=== PATIENT | male | born 1950 | race African-American/Black ===

== ENCOUNTER 2017-04-03 10:27 | Observation (INO) | payer OTHER ==
[~2017-04-03] VITALS: Ht 175.3 cm; Wt 71.5 kg
[2017-04-03] MEDS ORDERED: METOPROLOL TARTRATE 1 MG/ML VIAL IV STA (10:37)
[2017-04-03] MEDS ORDERED: NITROGLYCERIN OINT 2% 1GM PACKET EXT ONE (10:45)
--- NOTE | 2017-04-03 10:52 | EMERGENCY ROOM VISIT NOTE ---
History Report prepared by Bisi: Francisco Nicholson Under the Supervision of: Dr. Bertin Mcdowell D.O. First contact with patient: 10:33 Chief Complaint: CARDIAC ASSESSMENT Stated Complaint: CARDIAC ASSESSMENT History of Present Illness The patient is a 66 year old male who presents to the Emergency Room from [facility], with complaints of constant left sided chest and epigastric abdominal pain that began one night prior to arrival. The patient describes his pain as a "pressure." His pain onset while he was walking. He denies any nausea or vomiting and has not noticed any swelling in his lower extremities. The patient has has a history of thyroid complications, BPH, coronary artery disease, pulmonary hypertension, and hyperlipidemia. He has no surgical history. He had a heart catheterization in 2010. The patient received nitroglycerin and Aspirin prior to arrival. 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 A total of 10 systems reviewed and were otherwise negative. Past Medical & Surgical Medical Problems: (1) CAD (coronary artery disease) (2) Hyperlipidemia (3) Hypertension (4) Hypertensive urgency CAD (coronary artery disease) Hyperlipidemia Hypertension Family History No pertinent family history secondary to age. Social History Marital Status: single (Inmate) [facility] Status: [facility] ([facility] Occupation Status: other (Inmate) Current/Historical Medications Scheduled Amlodipine (Norvasc), 10 MG PO DAILY Aspirin (Aspirin Chewable), 81 MG PO DAILY Atorvastatin (Lipitor), 20 MG PO QPM Atorvastatin (Lipitor), 40 MG PO QPM Hydrochlorothiazide (Hctz), 25 MG PO DAILY Isosorbide Dinitrate (Isordil), 30 MG PO QID Lisinopril (Zestril), 40 MG PO DAILY Metoprolol Tartrate (Lopressor) (Lopressor), 25 MG PO BID Nitroglycerin (Nitrostat), 0.4 MG UT PRN Allergies Coded Allergies: No Known Allergies (Unverified , 04/03/17) Physical Exam Vital Signs Date Time Temp Pulse Resp B/P Pulse Ox O2 Delivery O2 Flow Rate FiO2 04/03/17 12:25 98 Room Air 04/03/17 12:10 87 04/03/17 12:10 84 16 270/151 98 04/03/17 11:14 74 16 222/135 99 Room Air 04/03/17 11:09 74 18 243/117 97 Room Air 04/03/17 11:05 85 18 233/122 98 04/03/17 10:58 99 265/151 04/03/17 10:42 121 04/03/17 10:40 99 Room Air 04/03/17 10:40 36.9 110 16 264/151 99 Room Air 04/03/17 10:40 99 Room Air Physical Exam GENERAL: Patient is awake, alert, and in no acute distress. Patient is resting comfortably and showing no signs of anxiety EYES: The conjunctivae are clear. The pupils are round and reactive. EARS, NOSE, MOUTH AND THROAT: The nose is without any evidence of any deformity. Mucous membranes are moist tongue is midline NECK: The neck is nontender and supple. RESPIRATORY: Normal respiratory effort is noted there is no evidence of wheezing rhonchi or rales CARDIOVASCULAR: Regular rate and rhythm noted there no murmurs rubs or gallops normal S1 normal S2 GASTROINTESTINAL: The abdomen is mildly distended, but soft. Bowel sounds are present in all quadrants. Abdomen is nontender MUSCULOSKELETAL/EXTREMITIES: There is no evidence of gross deformity full range of motion is noted in the hips and shoulders SKIN: There is no obvious evidence of any rash. There are no petechiae, pallor or cyanosis noted. NEUROLOGIC: Patient is awake alert and oriented x3 Medical Decision & Procedures ER Provider Diagnostic Interpretation: Radiology results as stated below per my review and radiologist interpretation: CHEST ONE VIEW PORTABLE CLINICAL HISTORY: Chest pain. COMPARISON STUDY: No previous studies for comparison. FINDINGS: This exam is mild compromised due to difficulty with positioning. Lung volumes are normal. There is no evidence of pulmonary edema. Cardiac size is normal. Mediastinal contours are normal. There is no pneumothorax or pleural effusion. There is minimal left basilar opacity. IMPRESSION: 1. Minimal left basilar opacity. Atelectasis or artifact is favored although a mild infectious process could appear similar. 2. No pneumothorax. 3. Study mildly compromised due to difficulty with positioning. Electronically signed by: Abhay Hwang M.D. 04/03/2017 10:56 AM Dictated Date/Time: 04/03/2017 10:54 AM Laboratory Results 04/03/17 10:45 Red Blood Count 4.96, Mean Corpuscular Volume 93.8, Mean Corpuscular Hemoglobin 32.5, Mean Corpuscular Hemoglobin Concent 34.6, Mean Platelet Volume 9.1, Neutrophils (%) (Auto) 51.6, Lymphocytes (%) (Auto) 38.3, Monocytes (%) (Auto) 7.3, Eosinophils (%) (Auto) 2.3, Basophils (%) (Auto) 0.4, Neutrophils # (Auto) 4.10, Lymphocytes # (Auto) 3.04, Monocytes # (Auto) 0.58, Eosinophils # (Auto) 0.18, Basophils # (Auto) 0.03 04/03/17 10:45 Test 04/03/17 10:45 04/03/17 10:53 04/03/17 11:20 White Blood Count 7.94 K/uL (4.8-10.8) Red Blood Count 4.96 M/uL (4.7-6.1) Hemoglobin 16.1 g/dL (14.0-18.0) Hematocrit 46.5 % (42-52) Mean Corpuscular Volume 93.8 fL (80-100) Mean Corpuscular Hemoglobin 32.5 pg (25-34) Mean Corpuscular Hemoglobin Concent 34.6 g/dl (32-36) Platelet Count 268 K/uL (130-400) Mean Platelet Volume 9.1 fL (7.4-10.4) Neutrophils (%) (Auto) 51.6 % Lymphocytes (%) (Auto) 38.3 % Monocytes (%) (Auto) 7.3 % Eosinophils (%) (Auto) 2.3 % Basophils (%) (Auto) 0.4 % Neutrophils # (Auto) 4.10 K/uL (1.4-6.5) Lymphocytes # (Auto) 3.04 K/uL (1.2-3.4) Monocytes # (Auto) 0.58 K/uL (0.11-0.59) Eosinophils # (Auto) 0.18 K/uL (0-0.5) Basophils # (Auto) 0.03 K/uL (0-0.2) RDW Standard Deviation 47.1 fL (36.4-46.3) RDW Coefficient of Variation 13.8 % (11.5-14.5) Immature Granulocyte % (Auto) 0.1 % Immature Granulocyte # (Auto) 0.01 K/uL (0.00-0.02) Prothrombin Time 11.7 SECONDS (9.0-12.0) Prothromb Time International Ratio 1.1 (0.9-1.1) Activated Partial Thromboplast Time 28.2 SECONDS (21.0-31.0) Partial Thromboplastin Ratio 1.1 Anion Gap 7.0 mmol/L (3-11) Est Creatinine Clear Calc Drug Dose 71.7 ml/min Estimated GFR () 89.9 Estimated GFR (Non- 77.5 BUN/Creatinine Ratio 16.8 (10-20) Calcium Level 9.3 mg/dl (8.5-10.1) Total Bilirubin 0.5 mg/dl (0.2-1) Direct Bilirubin 0.1 mg/dl (0-0.2) Aspartate Amino Transf (AST/SGOT) 24 U/L (15-37) Alanine Aminotransferase (ALT/SGPT) 27 U/L (12-78) Alkaline Phosphatase 95 U/L (45-117) Total Creatine Kinase 147 U/L (39-308) Creatine Kinase MB 3.8 ng/ml (0.5-3.6) Creatine Kinase MB Ratio 2.6 (0-3.0) Pro-B-Type Natriuretic Peptide 551 pg/ml (0-900) Total Protein 8.6 gm/dl (6.4-8.2) Albumin 4.0 gm/dl (3.4-5.0) Lipase 92 U/L (73-393) Bedside Troponin I 0.000 ng/ml (0-0.045) Laboratory results per my review. Medications Administered Medications (Trade) Dose Ordered Sig/Keith Route Start Time Stop Time Status Last Admin Dose Admin Nitroglycerin (Nitroglycerin 2% Oint) 1 inch NOW ONCE EXT 04/03/17 10:45 04/03/17 10:46 DC 04/03/17 10:58 1 INCH Metoprolol Tartrate (Lopressor Iv) 15 mg NOW STAT IV 04/03/17 10:37 04/03/17 10:38 DC 04/03/17 10:58 15 MG ECG Indication: chest pain Rate (beats per minute): 109 Rhythm: sinus tachycardia Findings: ST depression (Lateral, Inferior), T-wave inversion Comparison ECG Date: 04/06/2016 Change: inferior changes are new ED Course 1036: The patient was evaluated in room A3. A complete history and physical examination were performed. 1037: Ordered Lopressor 15 mg IV, Nitroglycerin 1 inch. 1215: I discussed the case with Dr. Corbett at this time, She will evaluate the patient for further treatment. Medical Decision The patient's history was concerning for chest pain. Differential diagnosis: Etiologies such as cardiac ischemia, aortic dissection, pulmonary embolism, pneumonia, pneumothorax, musculoskeletal, infections, pericarditis, myocarditis , esophageal rupture, gastrointestinal, as well as others were entertained. The patient is a 66-year-old male who has a history of coronary artery disease who presented to the emergency department for an evaluation of chest pain. The patient developed chest pain yesterday while he was walking. The patient denies any shortness of breath. He was found have very elevated blood pressure and EKG abnormalities which could be consistent with acute ischemia. The patient was given aspirin prior to arrival. He was also treated with nitroglycerin. He was further treated with nitroglycerin and Lopressor in the emergency department. His symptoms slowly improved. I discussed the patient's laboratory and radiographic studies with him. I also discussed the limitations of the emergency Parman workup for chest pain with him. Given the patient's EKG findings and his past medical history I do feel he is high risk. For this reason I discussed his case with the on-call [facility] hospitalist group. They' ve agreed to evaluate the patient in the emergency department for further management and disposition. Consults Time Called: 1210 Consulting Physician: Dr. Corbett - [facility] Returned Call: 1215 I discussed the case with Dr. Corbett at this time, She will evaluate the patient for further treatment. Impression Primary Impression: Chest pain Additional Impressions: Abnormal EKG Hypertension Scribe Attestation The scribe's documentation has been prepared under my direction and personally reviewed by me in its entirety. I confirm that the note above accurately reflects all work, treatment, procedures, and medical decision making performed by me. Departure Information Dispostion Being Evaluated By Hospitalist Patient Instructions My [facility] Problem Qualifiers Primary Impression: Chest pain Chest pain type: unspecified Qualified Codes: R07.9 - Chest pain, unspecified Additional Impressions:
[2017-04-03 10:56] LABS: BASO % 0.4 %; BASO ABS # 0.03 K/uL (0-0.2); COMPLETE YES; EOS % 2.3 %; HEMATOCRIT 46.5 % (42-52); IG% 0.1 %; LYMPH % 38.3 %; LYMPH ABS # 3.04 K/uL (1.2-3.4); MEAN CELL VOLUME 93.8 fL (80-100); MEAN CORPUSCULAR HEMOGLOBIN 32.5 pg (25-34); MEAN CORPUSCULAR HGB CONC 34.6 g/dl (32-36); MEAN PLATELET VOLUME 9.1 fL (7.4-10.4); MONO % 7.3 %; NEUT % 51.6 %; PLATELET COUNT 268 K/uL (130-400); RED BLOOD COUNT 4.96 M/uL (4.7-6.1); WHITE BLOOD COUNT 7.94 K/uL (4.8-10.8)
--- NOTE | 2017-04-03 10:58 | DIAGNOSTIC IMAGING REPORT ---
CHEST ONE VIEW PORTABLE CLINICAL HISTORY: Chest pain. COMPARISON STUDY: No previous studies for comparison. FINDINGS: This exam is mild compromised due to difficulty with positioning. Lung volumes are normal. There is no evidence of pulmonary edema. Cardiac size is normal. Mediastinal contours are normal. There is no pneumothorax or pleural effusion. There is minimal left basilar opacity. IMPRESSION: 1. Minimal left basilar opacity. Atelectasis or artifact is favored although a mild infectious process could appear similar. 2. No pneumothorax. 3. Study mildly compromised due to difficulty with positioning. Electronically signed by: Abhay Hwang M.D. 04/03/2017 10:56 AM Dictated Date/Time: 04/03/2017 10:54 AM
[2017-04-03] MEDS ORDERED: ATOR-54 PO (11:01)
[2017-04-03] MEDS ORDERED: HYDR25TA4 PO (11:01)
[2017-04-03] MEDS ORDERED: LPT/40 PO (11:01)
[2017-04-03] MEDS ORDERED: NTRGSL/4 UT (11:01)
[2017-04-03] MEDS ORDERED: AMLO-114 PO (11:01)
[2017-04-03] MEDS ORDERED: LISI40TA PO (11:01)
[2017-04-03] MEDS ORDERED: ASPCH81X PO (11:01)
[2017-04-03] MEDS ORDERED: METO25TA56 PO (11:01)
[2017-04-03] MEDS ORDERED: ISR/30 PO (11:01)
[2017-04-03 11:12] LABS: INR 1.1 (0.9-1.1); PARTIAL THROMBOPLASTIN RATIO 1.1; PROTHROMBIN TIME (PATIENT) 11.7 SECONDS (9.0-12.0)
[2017-04-03 11:15] LABS: BUN/CREATININE RATIO 16.8 (10-20); CALCIUM 9.3 mg/dl (8.5-10.1)
[2017-04-03 11:23] LABS: CKMB/CK RATIO 2.6 (0-3.0)
[2017-04-03] MEDS ORDERED: MAGNESIUM HYDROXIDE SUSP 30 ML UDC PO PRN (12:15)
[2017-04-03] MEDS ORDERED: ONDANSETRON INJ 2 MG/ML 2 ML VIAL IV PRN (12:15)
[2017-04-03] MEDS ORDERED: NITROGLYCERIN 0.4 MG SL PER TAB CHARGE UT PRN (12:15)
[2017-04-03] MEDS ORDERED: ACETAMINOPHEN 325 MG TAB PO PRN (12:15)
[2017-04-03 12:25] VITALS: BP 203/116; PULSE 83; TEMP 36.6; O2SAT 98; Ht 175.3 cm; Wt 71.5 kg
[2017-04-03 12:55] LABS: URINE APPEARANCE CLEAR (CLEAR); URINE BILIRUBIN NEG (NEG); URINE COLOR YELLOW; URINE EPITHELIAL CELL AUTO 0-5 /lpf (0-5); URINE NITRITE NEG (NEG); URINE PH 7.5 (4.5-7.5); URINE SPECIFIC GRAVITY 1.007 (1.000-1.030); UROBILINOGEN NEG (NEG)
[2017-04-03 12:57] LABS: MANUAL MICROSCOPIC REQUIRED? NO; REVIEW REQ? NO
[2017-04-03 12:58] LABS: SULFASALICYLIC ACID NEG (NEG)
[2017-04-03] MEDS ORDERED: LABETALOL HCL IV 5 MG/ML 20ML IV ONE (13:00)
--- NOTE | 2017-04-03 13:01 | History and Physical ---
History & Physical Date & Time of Service: April 03, 2017 at 12:37 Chief Complaint: Cardiac Assessment Primary Care Physician: Darius PEREIRA History of Present Illness Source: patient The patient is a 66 year old male with PMH of HTN, Dyslipidemia, Stroke with no deficits, hx of cardiac cath at [facility] in 2007 - no stents were placed (patient doesnt know about the results) who presents to the Emergency Room from [facility], with complaints of constant left sided chest and epigastric abdominal pain that began one night prior to arrival. Patient has been in long term x 43 years, recently transferred to [facility]. No prior records available in EMR. Patient comes in with c/o left sided chest pain/Epigastric pain which began yesterday night and per him it is constant, dull aching, non radiating, no aggravating or relieving factors. Does have mild SOB associated with it. Not associated with nausea, diaphoresis, sweating, palpitations, fever, chills, cough, leg swelling. No headaches, blurry vision, localized weakness, numbness/tingling, vomiting. Did take him medications in AM In ED, BP is 264/151 on presentation, Pulse 110, now down to 70s -received Lopressor IV -15 mg x 1 dose. Received Aspirin 160 mg, NTG x 2 doses (one by EMS , one in ED). Continues to have chest pain. Has painful mictuirition and difficulty passing urine. Has always had urgency, hesitancy, frequency, but never been this painful before. C/o constipation- No BM x 3 days. Will admit him for HTN urgency/Chest pain rule out ACS. Past Medical/Surgical History Medical Problems: (1) CAD (coronary artery disease) Status: Chronic (2) Hyperlipidemia Status: Chronic (3) Hypertension Status: Chronic Social History Smoking Status: Current Every Day Smoker (8-10 cig /day) Alcohol Use: occasionally Drug Use: none Marital Status: single (Inmate) Occupational Status: other (Inmate) Allergies Coded Allergies: No Known Allergies (Unverified , 04/03/17) Home Medications Scheduled Amlodipine (Norvasc), 10 MG PO DAILY Aspirin (Aspirin Chewable), 81 MG PO DAILY Atorvastatin (Lipitor), 20 MG PO QPM Atorvastatin (Lipitor), 40 MG PO QPM Hydrochlorothiazide (Hctz), 25 MG PO DAILY Isosorbide Dinitrate (Isordil), 30 MG PO QID Lisinopril (Zestril), 40 MG PO DAILY Metoprolol Tartrate (Lopressor) (Lopressor), 25 MG PO BID Nitroglycerin (Nitrostat), 0.4 MG UT PRN Review of Systems Constitutional: No chills, No fever Eyes: No eye pain, No worsening of vision ENT: No hearing loss, No nasal symptoms Respiratory: + shortness of breath (mild), No cough, No wheezing Cardiovascular: + chest pain Abdomen: + constipation, + pain (epigastric), No GI bleeding, No diarrhea, No nausea, No vomiting Musculoskeletal: No swelling Genitourinary - Male: + dysuria, + urinary frequency, + urinary hesitancy, + urinary urgency Neurologic: No memory loss, No paralysis Psychiatric: No depression symptoms Endocrine: No fatigue Hematologic / Lymphatic: No abnormal bleeding/bruising Integumentary: No rash Physical Exam Vital Signs Date Time Temp Pulse Resp B/P Pulse Ox O2 Delivery O2 Flow Rate FiO2 04/03/17 12:10 87 04/03/17 12:10 84 16 270/151 98 04/03/17 11:14 74 16 222/135 99 Room Air 04/03/17 11:09 74 18 243/117 97 Room Air 04/03/17 11:05 85 18 233/122 98 04/03/17 10:58 99 265/151 04/03/17 10:42 121 04/03/17 10:40 99 Room Air 04/03/17 10:40 36.9 110 16 264/151 99 Room Air 04/03/17 10:40 99 Room Air General Appearance: + moderate distress (secondary to dysuria) Head: normocephalic, atraumatic Eyes: PERRL ENT: hearing grossly normal Neck: supple, no JVD Respiratory/Chest: chest non-tender, lungs clear, normal breath sounds, no respiratory distress, no accessory muscle use Cardiovascular: regular rate, rhythm, no edema, no JVD Abdomen/GI: normal bowel sounds, non tender, soft Back: no CVA tenderness Extremities/Musculoskelatal: no calf tenderness, no pedal edema 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, no motor/sensory deficits, alert, oriented x 3 Skin: no rash Diagnostics Laboratory Results Results Past 24 Hours Test 04/03/17 10:45 04/03/17 10:53 04/03/17 11:20 Range/Units White Blood Count 7.94 4.8-10.8 K/uL Red Blood Count 4.96 4.7-6.1 M/uL Hemoglobin 16.1 14.0-18.0 g/dL Hematocrit 46.5 42-52 % Mean Corpuscular Volume 93.8 80-100 fL Mean Corpuscular Hemoglobin 32.5 25-34 pg Mean Corpuscular Hemoglobin Concent 34.6 32-36 g/dl Platelet Count 268 130-400 K/uL Mean Platelet Volume 9.1 7.4-10.4 fL Neutrophils (%) (Auto) 51.6 % Lymphocytes (%) (Auto) 38.3 % Monocytes (%) (Auto) 7.3 % Eosinophils (%) (Auto) 2.3 % Basophils (%) (Auto) 0.4 % Neutrophils # (Auto) 4.10 1.4-6.5 K/uL Lymphocytes # (Auto) 3.04 1.2-3.4 K/uL Monocytes # (Auto) 0.58 0.11-0.59 K/uL Eosinophils # (Auto) 0.18 0-0.5 K/uL Basophils # (Auto) 0.03 0-0.2 K/uL RDW Standard Deviation 47.1 36.4-46.3 fL RDW Coefficient of Variation 13.8 11.5-14.5 % Immature Granulocyte % (Auto) 0.1 % Immature Granulocyte # (Auto) 0.01 0.00-0.02 K/uL Prothrombin Time 11.7 9.0-12.0 SECONDS Prothromb Time International Ratio 1.1 0.9-1.1 Activated Partial Thromboplast Time 28.2 21.0-31.0 SECONDS Partial Thromboplastin Ratio 1.1 Sodium Level 137 136-145 mmol/L Potassium Level 4.0 3.5-5.1 mmol/L Chloride Level 101 98-107 mmol/L Carbon Dioxide Level 29 21-32 mmol/L Anion Gap 7.0 3-11 mmol/L Blood Urea Nitrogen 17 7-18 mg/dl Creatinine 1.00 0.60-1.40 mg/dl Est Creatinine Clear Calc Drug Dose 71.7 ml/min Estimated GFR () 89.9 Estimated GFR (Non- 77.5 BUN/Creatinine Ratio 16.8 10-20 Random Glucose 114 70-99 mg/dl Calcium Level 9.3 8.5-10.1 mg/dl Total Bilirubin 0.5 0.2-1 mg/dl Direct Bilirubin 0.1 0-0.2 mg/dl Aspartate Amino Transf (AST/SGOT) 24 15-37 U/L Alanine Aminotransferase (ALT/SGPT) 27 12-78 U/L Alkaline Phosphatase 95 45-117 U/L Total Creatine Kinase 147 39-308 U/L Creatine Kinase MB 3.8 0.5-3.6 ng/ml Creatine Kinase MB Ratio 2.6 0-3.0 Pro-B-Type Natriuretic Peptide 551 0-900 pg/ml Total Protein 8.6 6.4-8.2 gm/dl Albumin 4.0 3.4-5.0 gm/dl Lipase 92 73-393 U/L Bedside Troponin I 0.000 0-0.045 ng/ml Diagnostic Radiology EKG reviewed and compared with prior EKG dated 03/2016- New changes = ST depression in Leads III, AVF, Old changes= T wave inversion in I, ST depression in II, V4-V6 CXR- No acute findings noted Impression Assessment and Plan HYPERTENSIVE URGENCY Presented with BP of 264/151 in ED, in moderate distress secondary to dysuria/ difficulty urinating -S/P Lopressor 15 mg IV X 1 dose in ED. -Will give IV Labetalol 10 mg stat -Continue with home medications- HCTZ-25 MG, Lisinopril 40 mg , Metoprolol 25 mg PO BID, Amlodipine 10 mg daily, Isosorbide dinitrate 30 mg QID--> will put him on nitro 2% oint q 6 hours -May consider foleys to relieve the distress secondary to difficulty urinating which will help controlling BP -Monitor closely and need to bring it down slowly LEFT CHEST PAIN, ATYPICAL Most likely secondary to above, but need to rule out ischemia -Risk factors: HTN, Dyslipidemia, Hx of stroke in past, smoking -Had cardiac cath at [facility] in 2007 (records requested) -EKG- ST depression III, AVF - new compared to prior EKG. Old changes= T wave inversion in I, ST depression in II, V4-V6; Trop x 1 negatie -Troponin x 3 -Continue with Aspirin 81 mg, Atorvastatin, Lisinopril, Metoprolol. Nitro oint q 6 hours placed -Consulted cardiology- discussed case with Dr Shah EPIGASTRIC PAIN Denies any associated findings of nausea, vomiting, cough., heart burn -Work up- Lipase normal, LFTs- normal -Will start protonix daily -Monitor DYSLIPIDEMIA -On Atorvastatin 20-40 mg -Lipid panel in AM HX OF STROKE -Per patient "mild" no residual deficits -On Aspirin 81 mg , Statin PROBABLE BPH Does have symptoms of urgency, hesitancy, frequency. Now in distress secondary to dysuria/straining while urinating -Will start him on flomax 0.4 mg daily DVT PROPHYLAXIS Moderate risk- Lovenox SQ GI PROPHYLAXIS Protonix daily DISPOSITION 'Observation telemetry Discussed case with Dr Shah Level of Care Telemetry Resuscitation Status FULL RESUSCITATION VTE Prophylaxis VTE Risk Assessment Done? Y/N: Yes Risk Level: Moderate Given or contraindicated: Enoxaparin (Lovenox)SQ
[2017-04-03] MEDS ORDERED: POLYETHYLENE (MIRALAX) 17 GM PACK PO PRN (13:30)
[2017-04-03] MEDS ORDERED: BISACODYL 5 MG TABEC PO PRN (13:30)
[2017-04-03 13:49] VITALS: BP 184/104
[2017-04-03] MEDS ORDERED: ISOSORBIDE DINITRATE 10 MG TAB PO SCH (14:00)
[2017-04-03] MEDS ORDERED: NITROGLYCERIN OINT 2% 1GM PACKET EXT SCH (14:00)
[2017-04-03] MEDS ORDERED: PNEUMOCOCCAL ADMINISTRATION CHARGE ONE (14:00)
[2017-04-03] MEDS ORDERED: PNEUMOCOCCAL POLYSACCHARIDES 25 MCG/0.5 ML VIAL/SYR IM. ONE (14:00)
[2017-04-03] MEDS: TAMSULOSIN HCL 0.4 MG CAP PO SCH (14:04)
[2017-04-03] MEDS ORDERED: IV FLUIDS COMPLETED PRN (14:15)
[2017-04-03 14:20] VITALS: BP_SYST 193; BP_SYST 202; BP_DIAS 102; BP_DIAS 94
[2017-04-03 14:22] LABS: BENZODIAZEPINE, URINE NEG (NEG); COCAINE,URINE NEG (NEG); PHENCYCLIDINE, URINE NEG (NEG)
[2017-04-03 15:21] VITALS: BP 205/108; PULSE 86; TEMP 37; O2SAT 100
--- NOTE | 2017-04-03 16:12 | CARDIOLOGY CONSULTATION ---
DATE OF CONSULTATION: 04/03/2017 REFERRING PHYSICIAN: Dr. Vani Corbett. REASON FOR CONSULTATION: Chest pain, cardiac urgency. HISTORY OF PRESENT ILLNESS: Mr. Haro is a 66-year-old gentleman who has been incarcerated for the past 43 years with a history of hypertension, dyslipidemia, possible CVA, and cardiac catheterization performed at [facility] in 2007. [facility]. He began to experience left-sided epigastric and lower chest discomfort last evening. The patient reports difficulty defecating, as well as passing his urine. He was able to sleep and then awoke this a.m. with recurrence of his constipation, abdominal and chest discomfort. He was brought to the Emergency Department due to his chest pain. He was noted to be markedly hypertensive with systolic blood pressure as high as 264. He was treated with intravenous Lopressor as well as one dose of intravenous labetalol in the ER. He was then admitted to the progressive care unit where a Pedersen catheter was placed. He drained approximately 700 mL of urine and was able to move his bowels. His blood pressure has improved significantly, most recent blood pressure of 194/98. His epigastric and chest discomfort has resolved. His ECG demonstrates sinus rhythm with left ventricular hypertrophy and secondary ST-T wave changes. Underlying ischemia cannot be excluded. His first set of troponins are negative. REVIEW OF SYSTEMS: The pertinent positive noted above, a comprehensive 10-system review is otherwise negative. PAST MEDICAL HISTORY: 1. Hypertension. 2. Dyslipidemia. 3. Possible cerebral vascular accident. PAST SURGICAL HISTORY: Cardiac catheterization. SOCIAL HISTORY: He is a current everyday smoker. Smokes 1/2 pack per day. He is incarcerated. ALLERGIES: No known drug allergies. CURRENT OUTPATIENT MEDICATIONS: 1. Amlodipine 10 mg daily. 2. Aspirin 81 mg daily. 3. Atorvastatin 60 mg daily. 4. Hydrochlorothiazide 25 mg daily. 5. Isordil 30 mg q.i.d. 6. Zestril 40 mg daily. 7. Metoprolol tartrate 25 mg twice daily. FAMILY HISTORY: Negative for premature CAD or sudden cardiac . IMAGING DATA: Chest x-ray performed on admission demonstrates no congestion or consolidation. LABORATORY DATA: White blood cell count 7.94, hemoglobin 16.1, platelet count is 268. Sodium 137, potassium 4.0, chloride 101, CO2 is 29, BUN is 17, creatinine is 1.00. Initial point of care troponin 0.000. INR is 1.1. Urinalysis demonstrates a small amount of leukocyte esterase. His urine drug screen is negative. PHYSICAL EXAMINATION: VITAL SIGNS: Temperature is 36.6 degrees centigrade, his pulse is 83 beats per minute and regular, his respiratory rate is 18 breaths per minute. Blood pressure initially 264/151. Most recent blood pressure 193/94. GENERAL: NAD, well nourished, awake, alert and oriented x3. THROAT: His mucous membranes are moist. There is no scleral icterus. Conjunctivae are pink. NECK: Supple. There is no GED or HJR. There is no carotid bruit. HEART: Regular with a normal S1 and S2. There is no murmur, rub, or gallop. LUNGS: Clear without rales, rhonchi or wheeze. ABDOMEN: Soft and nontender. There is no rebound or guarding. Normal bowel sounds. EXTREMITIES: Warm and dry. There is no clubbing, cyanosis, or edema. NEUROLOGIC: Demonstrates no focal motor deficit. FINAL IMPRESSION: 1. Hypertensive urgency related to abdominal discomfort, urinary retention as well as constipation x3 days. 2. Abnormal ECG, I suspect secondary to left ventricular hypertrophy and hypertensive urgency. Initial cardiac enzymes are negative. 3. Atypical chest discomfort secondary to #1. 4. Dyslipidemia. 5. Active tobacco abuse. 6. Epigastric discomfort related to constipation. 7. Chart history of possible cerebrovascular accident. PLAN AND RECOMMENDATIONS: The patient has received 3 doses of intravenous Lopressor as well as 1 dose of intravenous labetalol. I will titrate his metoprolol to 50 mg twice daily. His lisinopril, hydrochlorothiazide, amlodipine will be continued as previously ordered. Isosorbide has been placed on hold and the patient is currently treated with topical nitrates. We will continue this for the next 12-24 hours. His blood pressure will be monitored closely on the progressive care unit. Cardiac enzymes will be trended x3 sets. A resting 2D transthoracic echo has been ordered. Results pending. Outside records including results of prior cardiac catheterization requested. Further recommendations pending clinical course, response to medical therapy, and review of testing. Thank you for allowing me to take part in the care of your patient.
[2017-04-03] MEDS: ENOXAPARIN 40 MG/0.4 ML SYR SC SCH (17:40)
[2017-04-03] MEDS: NITROGLYCERIN 2% OINTMENT 30GM TUBE EXT SCH ×2 (17:41→22:00)
[2017-04-03] MEDS ORDERED: METOPROLOL TARTRATE 1 MG/ML VIAL IV PRN (17:45)
[2017-04-03 17:59] VITALS: BP 179/95; PULSE 88
[2017-04-03 19:40] VITALS: BP 178/94; PULSE 91; TEMP 36.7; O2SAT 100
[2017-04-03] MEDS ORDERED: METOPROLOL TARTRATE 25 MG TAB PO SCH (21:00)
[2017-04-03] MEDS: METOPROLOL TARTRATE 25 MG TAB PO SCH (21:17)
[2017-04-03] MEDS: ATORVASTATIN 40 MG TAB PO SCH (21:17)
[2017-04-03] MEDS: DOCUSATE SODIUM 100 MG CAP PO SCH (21:18)
[2017-04-04] VITALS (10 sets, daily range): BP systolic 118–161; BP diastolic 64–76; PULSE 58–81; TEMP 36.5–37; O2SAT 95–100
[2017-04-04] MEDS: NITROGLYCERIN 2% OINTMENT 30GM TUBE EXT SCH (04:27)
[2017-04-04 04:55] LABS: HEMATOCRIT 43.1 % (42-52); MEAN CELL VOLUME 94.9 fL (80-100); MEAN CORPUSCULAR HEMOGLOBIN 32.2 pg (25-34); MEAN CORPUSCULAR HGB CONC 33.9 g/dl (32-36); MEAN PLATELET VOLUME 9.5 fL (7.4-10.4); PLATELET COUNT 257 K/uL (130-400); RED BLOOD COUNT 4.54 M/uL (4.7-6.1)
[2017-04-04 05:15] LABS: BUN/CREATININE RATIO 19.9 (10-20); CALCIUM 9.1 mg/dl (8.5-10.1); CREATININE 1.1 mg/dl (0.60-1.40); POTASSIUM 3.8 mmol/L (3.5-5.1)
[2017-04-04 05:19] LABS: CHOLESTEROL/HDL RATIO 3.8
[2017-04-04] MEDS ORDERED: PERFLUTREN LIPID MICROSPHERE (DEFINITY) IV ONE (06:52)
[2017-04-04] MEDS: DOCUSATE SODIUM 100 MG CAP PO SCH ×2 (08:42→21:19)
[2017-04-04] MEDS: PANTOprazole SOD 40 MG TAB PO SCH (08:42)
[2017-04-04] MEDS: METOPROLOL TARTRATE 25 MG TAB PO SCH ×2 (08:42→21:19)
[2017-04-04] MEDS: HYDROCHLOROTHIAZIDE 25 MG TAB PO SCH (08:43)
[2017-04-04] MEDS: ASPIRIN 81 MG ECTAB PO SCH (08:43)
[2017-04-04] MEDS: TAMSULOSIN HCL 0.4 MG CAP PO SCH (08:43)
[2017-04-04] MEDS: AMLODIPINE BESYLATE 5 MG TAB PO SCH (08:43)
[2017-04-04] MEDS: POLYETHYLENE (MIRALAX) 17 GM PACK PO PRN (08:43)
[2017-04-04] MEDS: LISINOPRIL 40 MG TAB PO SCH (08:43)
--- NOTE | 2017-04-04 09:30 | Progress Note ---
Medicine Progress Note Date & Time of Visit: April 04, 2017 at 09:13. Subjective 67 yo inmate who developed constipation for several days as well as acute urinary obstruction which lead into chest pain and elevated BP. He presented to the ER wtih hypertensive urgency. Cards was consulted. BP improved to normal range with medication and Pedersen placement. Still having constipation but just took Miralax. Tolerating PO. Chest-pain free this morning but has some epigastric discomfort that is mild and non-tender to palpation on exam. Telemetry reviewed without events overnight. EKG reviewed from this morning consistent with LVH. Pt reports long-standing h/o incomplete voiding and nocuturia several times per night. He states that to discuss this with a halfway doctor takes alot of red tape and he may not be able to be started on medication for this. Objective Last 8 Hrs Date Time Temp Pulse Resp B/P Pulse Ox O2 Delivery O2 Flow Rate FiO2 04/04/17 08:00 36.7 72 18 139/76 99 04/04/17 04:08 36.7 66 17 141/69 99 Room Air 04/04/17 04:00 Room Air Physical Exam: GEN: WNWD, in no acute distress, alert and appropriate HEENT: NC/AT, normal sclerae, MMM CARDIO: reg rate, S1/2 heard without m/g/r, no JVD LUNGS: CTA bilaterally, no crackles, rales or wheezes, good diaphragmatic excursion ABD: soft, non-tender, non-distended, no rebound or guarding EXTREMITY: RP and DP palpable 2+ bilat, no LE swelling or edema, extremities are warm and well-perfused NEURO: CN 2-12 intact, no gross focal deficits MUSC: moves all extremities equally, no gross focal deficits. SKIN: warm and dry Laboratory Results: 04/04/17 04:25 04/04/17 04:25 Test 04/03/17 10:45 04/03/17 10:53 04/03/17 11:20 04/04/17 04:25 Immature Granulocyte % (Auto) 0.1 % White Blood Count 7.94 K/uL (4.8-10.8) Red Blood Count 4.96 M/uL (4.7-6.1) 4.54 M/uL (4.7-6.1) Hemoglobin 16.1 g/dL (14.0-18.0) Hematocrit 46.5 % (42-52) Mean Corpuscular Volume 93.8 fL (80-100) 94.9 fL (80-100) Mean Corpuscular Hemoglobin 32.5 pg (25-34) 32.2 pg (25-34) Mean Corpuscular Hemoglobin Concent 34.6 g/dl (32-36) 33.9 g/dl (32-36) Platelet Count 268 K/uL (130-400) Mean Platelet Volume 9.1 fL (7.4-10.4) 9.5 fL (7.4-10.4) Neutrophils (%) (Auto) 51.6 % Lymphocytes (%) (Auto) 38.3 % Monocytes (%) (Auto) 7.3 % Eosinophils (%) (Auto) 2.3 % Basophils (%) (Auto) 0.4 % Neutrophils # (Auto) 4.10 K/uL (1.4-6.5) Lymphocytes # (Auto) 3.04 K/uL (1.2-3.4) Monocytes # (Auto) 0.58 K/uL (0.11-0.59) Eosinophils # (Auto) 0.18 K/uL (0-0.5) Basophils # (Auto) 0.03 K/uL (0-0.2) Immature Granulocyte # (Auto) 0.01 K/uL (0.00-0.02) Prothrombin Time 11.7 SECONDS (9.0-12.0) Prothromb Time International Ratio 1.1 (0.9-1.1) Activated Partial Thromboplast Time 28.2 SECONDS (21.0-31.0) Partial Thromboplastin Ratio 1.1 Total Bilirubin 0.5 mg/dl (0.2-1) Direct Bilirubin 0.1 mg/dl (0-0.2) Aspartate Amino Transf (AST/SGOT) 24 U/L (15-37) Alanine Aminotransferase (ALT/SGPT) 27 U/L (12-78) Alkaline Phosphatase 95 U/L (45-117) Total Creatine Kinase 147 U/L (39-308) Creatine Kinase MB 3.8 ng/ml (0.5-3.6) Creatine Kinase MB Ratio 2.6 (0-3.0) Pro-B-Type Natriuretic Peptide 551 pg/ml (0-900) Total Protein 8.6 gm/dl (6.4-8.2) Albumin 4.0 gm/dl (3.4-5.0) Lipase 92 U/L (73-393) Bedside Troponin I 0.000 ng/ml (0-0.045) Urine Color YELLOW Urine Appearance CLEAR (CLEAR) Urine pH 7.5 (4.5-7.5) Urine Specific [place] 1.007 (1.000-1.030) Urine Protein NEG (NEG) Urine Glucose (UA) NEG (NEG) Urine Ketones NEG (NEG) Urine Occult Blood NEG (NEG) Urine Nitrite NEG (NEG) Urine Bilirubin NEG (NEG) Urine Urobilinogen NEG (NEG) Urine Leukocyte Esterase SMALL (NEG) Urine WBC (Auto) 1-5 /hpf (0-5) Urine RBC (Auto) 0-4 /hpf (0-4) Urine Hyaline Casts (Auto) 0 /lpf (0-5) Urine Epithelial Cells (Auto) 0-5 /lpf (0-5) Urine Bacteria (Auto) NEG (NEG) Urine Opiates Screen NEG (NEG) Urine Methadone, Qualitative NEG (NEG) Urine Barbiturates NEG (NEG) Urine Phencyclidine (PCP) Level NEG (NEG) Ur Amphetamine/Methamphetamine NEG (NEG) MDMA (Ecstasy) Screen NEG (NEG) Urine Benzodiazepines Screen NEG (NEG) Urine Cocaine Metabolite NEG (NEG) Urine Marijuana (THC) NEG (NEG) RDW Standard Deviation 47.1 fL (36.4-46.3) RDW Coefficient of Variation 13.6 % (11.5-14.5) Anion Gap 7.0 mmol/L (3-11) Est Creatinine Clear Calc Drug Dose 64.3 ml/min Estimated GFR () 79.5 Estimated GFR (Non- 68.6 BUN/Creatinine Ratio 19.9 (10-20) Calcium Level 9.1 mg/dl (8.5-10.1) Troponin I 0.025 ng/ml (0-0.045) Triglycerides Level 111 mg/dl (0-150) Cholesterol Level 188 mg/dl (0-200) HDL Cholesterol 50 mg/dl LDL Cholesterol, Calculated 116 mg/dl VLDL Cholesterol, Calculated 22 mg/dl Cholesterol/HDL Ratio 3.8 Last 24 Hours Test 04/03/17 10:45 5/8/17 10:53 04/03/17 11:20 04/03/17 16:47 White Blood Count 7.94 K/uL Red Blood Count 4.96 M/uL Hemoglobin 16.1 g/dL Hematocrit 46.5 % Mean Corpuscular Volume 93.8 fL Mean Corpuscular Hemoglobin 32.5 pg Mean Corpuscular Hemoglobin Concent 34.6 g/dl Platelet Count 268 K/uL Mean Platelet Volume 9.1 fL Neutrophils (%) (Auto) 51.6 % Lymphocytes (%) (Auto) 38.3 % Monocytes (%) (Auto) 7.3 % Eosinophils (%) (Auto) 2.3 % Basophils (%) (Auto) 0.4 % Neutrophils # (Auto) 4.10 K/uL Lymphocytes # (Auto) 3.04 K/uL Monocytes # (Auto) 0.58 K/uL Eosinophils # (Auto) 0.18 K/uL Basophils # (Auto) 0.03 K/uL RDW Standard Deviation 47.1 fL RDW Coefficient of Variation 13.8 % Immature Granulocyte % (Auto) 0.1 % Immature Granulocyte # (Auto) 0.01 K/uL Prothrombin Time 11.7 SECONDS Prothromb Time International Ratio 1.1 Activated Partial Thromboplast Time 28.2 SECONDS Partial Thromboplastin Ratio 1.1 Sodium Level 137 mmol/L Potassium Level 4.0 mmol/L Chloride Level 101 mmol/L Carbon Dioxide Level 29 mmol/L Anion Gap 7.0 mmol/L Blood Urea Nitrogen 17 mg/dl Creatinine 1.00 mg/dl Est Creatinine Clear Calc Drug Dose 71.7 ml/min Estimated GFR () 89.9 Estimated GFR (Non- 77.5 BUN/Creatinine Ratio 16.8 Random Glucose 114 mg/dl Calcium Level 9.3 mg/dl Total Bilirubin 0.5 mg/dl Direct Bilirubin 0.1 mg/dl Aspartate Amino Transf (AST/SGOT) 24 U/L Alanine Aminotransferase (ALT/SGPT) 27 U/L Alkaline Phosphatase 95 U/L Total Creatine Kinase 147 U/L Creatine Kinase MB 3.8 ng/ml Creatine Kinase MB Ratio 2.6 Pro-B-Type Natriuretic Peptide 551 pg/ml Total Protein 8.6 gm/dl Albumin 4.0 gm/dl Lipase 92 U/L Bedside Troponin I 0.000 ng/ml Urine Color YELLOW Urine Appearance CLEAR Urine pH 7.5 Urine Specific [place] 1.007 Urine Protein NEG Urine Glucose (UA) NEG Urine Ketones NEG Urine Occult Blood NEG Urine Nitrite NEG Urine Bilirubin NEG Urine Urobilinogen NEG Urine Leukocyte Esterase SMALL Urine WBC (Auto) 1-5 /hpf Urine RBC (Auto) 0-4 /hpf Urine Hyaline Casts (Auto) 0 /lpf Urine Epithelial Cells (Auto) 0-5 /lpf Urine Bacteria (Auto) NEG Urine Opiates Screen NEG Urine Methadone, Qualitative NEG Urine Barbiturates NEG Urine Phencyclidine (PCP) Level NEG Ur Amphetamine/Methamphetamine NEG MDMA (Ecstasy) Screen NEG Urine Benzodiazepines Screen NEG Urine Cocaine Metabolite NEG Urine Marijuana (THC) NEG Troponin I 0.022 ng/ml Test 04/03/17 22:50 04/04/17 04:25 Troponin I 0.028 ng/ml 0.025 ng/ml White Blood Count 9.30 K/uL Red Blood Count 4.54 M/uL Hemoglobin 14.6 g/dL Hematocrit 43.1 % Mean Corpuscular Volume 94.9 fL Mean Corpuscular Hemoglobin 32.2 pg Mean Corpuscular Hemoglobin Concent 33.9 g/dl RDW Standard Deviation 47.1 fL RDW Coefficient of Variation 13.6 % Platelet Count 257 K/uL Mean Platelet Volume 9.5 fL Sodium Level 140 mmol/L Potassium Level 3.8 mmol/L Chloride Level 103 mmol/L Carbon Dioxide Level 30 mmol/L Anion Gap 7.0 mmol/L Blood Urea Nitrogen 22 mg/dl Creatinine 1.10 mg/dl Est Creatinine Clear Calc Drug Dose 64.3 ml/min Estimated GFR () 79.5 Estimated GFR (Non- 68.6 BUN/Creatinine Ratio 19.9 Random Glucose 99 mg/dl Calcium Level 9.1 mg/dl Triglycerides Level 111 mg/dl Cholesterol Level 188 mg/dl HDL Cholesterol 50 mg/dl LDL Cholesterol, Calculated 116 mg/dl VLDL Cholesterol, Calculated 22 mg/dl Cholesterol/HDL Ratio 3.8 Diagnostic Imaging: SR 69, LVH with repol abnormality Assessment & Plan 67 yo inmate admitted for CP and hypertensive urgency. HYPERTENSIVE URGENCY Presented with BP of 264/151 in ED, in moderate distress secondary to dysuria/ difficulty urinating -S/P Lopressor 15 mg IV and Labetalol 10 IV -Continue with home medications- HCTZ-25 MG, Lisinopril 40 mg , Metoprolol 25 mg PO BID, Amlodipine 10 mg daily, Isosorbide dinitrate 30 mg QID -BP in normal range and he is feeling much better; complaining of headache so will stop the nitro paste now. -Pedersen in place relieving urinary obstruction ACUTE URINARY RETENTION -Pedersen in place and tamsulosin started yesterday -PSA ordered -as this is his initial presentation of AUR, which is likely to recur based on reported symptoms of incomplete voiding, hesitancy, nocturia and dribbling, will consult Urology formally LEFT CHEST PAIN, ATYPICAL -2/2 above, serial cardiac enzymes negative and EKG nonischemic -Risk factors: HTN, Dyslipidemia, Hx of stroke in past, smoking -Had cardiac cath at [facility] in 2007 (records requested) -Continue with Aspirin 81 mg, Atorvastatin, Lisinopril, Metoprolol, nitro prn -Cards following EPIGASTRIC PAIN Denies any associated findings of nausea, vomiting, cough., heart burn -Work up- Lipase normal, LFTs- normal -Protonix started for poss heartburn -likely 2/2 #1 and is improved today DYSLIPIDEMIA -On Atorvastatin 20-40 mg -Lipid panel reviewed-no changes to current dose HX OF STROKE -Per patient "mild" no residual deficits -On Aspirin 81 mg , Statin PROBABLE BPH Does have symptoms of urgency, hesitancy, frequency. Now in distress secondary to dysuria/straining while urinating -Will start him on flomax 0.4 mg daily DVT PROPHYLAXIS Moderate risk- Lovenox SQ DISPOSITION-cont tele monitoring FULL CODE Rabia Mayes DO [facility] Hospitalist Current Inpatient Medications: Current Inpatient Medications Medications (Trade) Dose Ordered Sig/Keith Route Start Time Stop Time Status Last Admin Dose Admin Amlodipine Besylate (Norvasc Tab) 10 mg DAILY PO 04/04/17 09:00 05/04/17 08:59 04/04/17 08:43 10 MG Aspirin (Ecotrin Tab) 81 mg DAILY PO 04/04/17 09:00 05/04/17 08:59 04/04/17 08:43 81 MG Atorvastatin Calcium (Lipitor Tab) 40 mg QPM PO 04/03/17 21:00 05/03/17 20:59 04/03/17 21:17 40 MG Hydrochlorothiazide (Hydrochlorothiazide Tab) 25 mg DAILY PO 04/04/17 09:00 05/04/17 08:59 04/04/17 08:43 25 MG Lisinopril (Zestril Tab) 40 mg DAILY PO 04/04/17 09:00 05/04/17 08:59 04/04/17 08:43 40 MG Nitroglycerin (Nitrostat Tab) 0.4 mg UD PRN UT 04/03/17 12:15 05/03/17 12:14 Isosorbide Dinitrate (Isordil Tab) 30 mg QID@0700,1000,1400,1700 PO 04/03/17 14:00 05/03/17 13:59 Future Hold Enoxaparin Sodium (Lovenox Inj) 40 mg Q24H SC 04/03/17 16:00 05/03/17 15:59 04/03/17 17:40 40 MG Acetaminophen (Tylenol Tab) 650 mg Q4H PRN PO 04/03/17 12:15 05/03/17 12:14 Magnesium Hydroxide (Milk Of Magnesia Susp) 30 ml Q12H PRN PO 04/03/17 12:15 05/03/17 12:14 Ondansetron HCl (Zofran Inj) 4 mg Q6H PRN IV 04/03/17 12:15 05/03/17 12:14 Polyethylene (Miralax Powder Packet) 17 gm DAILY PRN PO 04/03/17 12:15 05/03/17 12:14 04/04/17 08:43 17 GM Pantoprazole Sodium (Protonix Tab) 40 mg QAM PO 04/04/17 09:00 05/04/17 08:59 04/04/17 08:42 40 MG Tamsulosin HCl (Flomax Cap) 0.4 mg DAILY PO 04/03/17 13:00 05/03/17 12:59 04/04/17 08:43 0.4 MG Docusate Sodium (coLACE CAP) 100 mg BID PO 04/03/17 21:00 05/03/17 20:59 04/04/17 08:42 100 MG Bisacodyl (Dulcolax Tab) 5 mg BID PRN PO 04/03/17 13:30 05/03/17 13:29 Nitroglycerin (Nitroglycerin 2% Oint) 1 inch Q6H EXT 04/03/17 16:00 05/03/17 15:59 04/04/17 04:27 1 INCH Miscellaneous (Iv Fluids Completed) 1 ea PRN PRN N/A 04/03/17 14:15 04/03/18 14:14 Metoprolol Tartrate (Lopressor Tab) 50 mg BID PO 04/03/17 21:00 05/03/17 20:59 04/04/17 08:42 50 MG Metoprolol Tartrate (Lopressor Iv) 5 mg Q6 PRN IV 04/03/17 17:45 05/03/17 17:44
--- NOTE | 2017-04-04 11:06 | ECHOCARDIOGRAM REPORT ---
*NOTICE TO RECEIVING REPUBLICAN AGENCY This information is strictly Confidential and protected under [place] law. [place] law prohibits you from making any further disclosure of this information unless further disclosure is expressly permitted by the written consent of the person to whom it pertains or is authorized by law. A general authorization for the release of medical or other information is not sufficient for this purpose. Hospital accepts no responsibility if the information is made available to any other person, INCLUDING THE PATIENT. Interpretation Summary * Name: YAHAIRA RENEE [id number] Study Date: 04/04/2017 06:36 AM BP: 141/69 mmHg * Patient Location: C.2T\S\E222\S\1 HR: 66 * : 1950 (M/d/yyyy) Gender: Male Height: 69 in * Age: 67 yrs Ethnicity: AA Weight: 157 lb * Ordering Physician: Rikki Shah * Performed By: Inder Butt RCS * * Reason For Study: Chest Pain * BSA: 1.9 m2 * -- Conclusions -- * The left ventricle is normal in size. * There is moderate concentric left ventricular hypertrophy. * The left ventricular wall motion is normal. * Ejection Fraction = >70 %. * Aortic valve sclerosis moderate, without significant aortic valvular stenosis. * There is trace mitral regurgitation. * There is trace tricuspid regurgitation. * Grade I diastolic dysfunction, (abnormal relaxation pattern). * The aortic root is normal size. * Right ventricular systolic pressure is normal. Procedure Details * A complete two-dimensional transthoracic echocardiogram was performed (2D, M-mode, Doppler and color flow Doppler). * A contrast injection of Definity was performed to improve assessment of LV function. * Contrast was injected into an intravenous site in the right arm. * One vial of Definity ultrasound contrast was diluted in normal saline to a total volume of 10 ml. A total of '2' ml of solution was administered during imaging. * Lot # [id number] of Definity utilized for procedure. * Expiration date 1APR18. * The attending nurse who injected the contrast agent was Ilia Fairchild RN. Left Ventricle * The left ventricle is normal in size. * There is moderate concentric left ventricular hypertrophy. * Ejection Fraction = >70 %. * Left ventricular systolic function is normal. * The left ventricular wall motion is normal. Right Ventricle * The right ventricle is normal in size and function. Atria * The left atrial size is normal. * Right atrial size is normal. * The interatrial septum is intact with no evidence for an atrial septal defect. Mitral Valve * The mitral valve anatomy is normal. * There is no mitral valve stenosis. * There is trace mitral regurgitation. Tricuspid Valve * The tricuspid valve is normal. * There is no tricuspid stenosis. * There is trace tricuspid regurgitation. * Right ventricular systolic pressure is normal. Aortic Valve * The aortic valve is trileaflet. * Aortic valve sclerosis moderate, without significant aortic valvular stenosis. * No hemodynamically significant valvular aortic stenosis. * No aortic regurgitation is present. Pulmonic Valve * The pulmonic valve is not well visualized. Great Vessels * The aortic root is normal size. Pericardium/Pleural * There is no pericardial effusion. Great Vessels * Normal inferior vena cava diameter and respiratory variation suggests normal central venous pressure. Left Ventricular Diastolic Function * Grade I diastolic dysfunction, (abnormal relaxation pattern). MMode 2D Measurements and Calculations IVSd 1.5 cm IVSs 1.8 cm LVIDd 3.9 cm LVIDs 2.2 cm LVPWd 1.5 cm LVPWs 1.9 cm IVS/LVPW 1.0 FS 44.7 % EDV(Teich) 65.5 ml ESV(Teich) 15.3 ml EF(Teich) 76.6 % EDV(cubed) 58.9 ml ESV(cubed) 10.0 ml EF(cubed) 83.1 % % IVS thick 19.5 % % LVPW thick 28.9 % LV mass(C)d 224.0 grams LV mass(C)dI 120.2 grams/m\S\2 LV mass(C)s 161.2 grams LV mass(C)sI 86.5 grams/m\S\2 CO(Teich) 3.4 l/min CI(Teich) 1.8 l/min/m\S\2 SV(Teich) 50.2 ml SI(Teich) 26.9 ml/m\S\2 CO(cubed) 3.3 l/min CI(cubed) 1.8 l/min/m\S\2 SV(cubed) 48.9 ml SI(cubed) 26.3 ml/m\S\2 Ao root diam 3.5 cm Ao root area 9.5 cm\S\2 ACS 1.8 cm LA dimension 3.7 cm LA/Ao 1.1 LVAd ap4 39.5 cm\S\2 LVLd ap4 9.5 cm EDV(MOD-sp4) 134.0 ml LVAs ap4 17.7 cm\S\2 LVLs ap4 7.7 cm ESV(MOD-sp4) 36.0 ml EF(MOD-sp4) 73.1 % LVAd ap2 34.8 cm\S\2 LVLd ap2 10.0 cm EDV(MOD-sp2) 105.0 ml LVAs ap2 12.7 cm\S\2 LVLs ap2 7.5 cm ESV(MOD-sp2) 20.0 ml EF(MOD-sp2) 81.0 % CO(MOD-sp4) 6.6 l/min CI(MOD-sp4) 3.5 l/min/m\S\2 SV(MOD-sp4) 98.0 ml SI(MOD-sp4) 52.6 ml/m\S\2 CO(MOD-sp2) 5.7 l/min CI(MOD-sp2) 3.1 l/min/m\S\2 SV(MOD-sp2) 85.0 ml SI(MOD-sp2) 45.6 ml/m\S\2 Doppler Measurements and Calculations MV E max janet 45.5 cm/sec MV A max janet 60.9 cm/sec MV E/A 0.75 MV P1/2t max janet 65.2 cm/sec MV P1/2t 41.7 msec MVA(P1/2t) 5.3 cm\S\2 MV dec slope 457.2 cm/sec\S\2 MV dec time 0.23 sec Ao V2 max 134.5 cm/sec Ao max PG 7.2 mmHg Ao max PG (full) 1.3 mmHg LV V1 max PG 5.9 mmHg LV V1 max 121.9 cm/sec PA V2 max 79.8 cm/sec PA max PG 2.5 mmHg PI max janet 184.6 cm/sec PI max PG 13.7 mmHg PI dec slope 128.6 cm/sec\S\2 PI P1/2t 420.5 msec TR max janet 197.6 cm/sec
[2017-04-04] MEDS: ENOXAPARIN 40 MG/0.4 ML SYR SC SCH (15:32)
--- NOTE | 2017-04-04 16:06 | Cardiology Follow-Up ---
Subjective General Date of Service: April 04, 2017. Pt evaluation today including: conversation w/ patient, physical exam, chart review, lab review, review of studies, review of inpatient medication list History of Present Illness The patient is a 67 year old male seen in follow up. BP now within normal range. No CP. Troponin negative. C/o constipation. No dysrhythmia on telelmetry. Allergies Coded Allergies: No Known Allergies (Unverified , 04/03/17) Social History Smoking Status: Current Every Day Smoker (8-10 cig /day) Hx Tobacco Use In Past Year?: Yes Hx Alcohol Use - Type And Amou: No (history of intake) Hx Substance Use - Type And Am: No (denies) Problem List Medical Problems: (1) Abnormal EKG Status: Acute (2) CAD (coronary artery disease) Status: Chronic (3) Chest pain Status: Acute (4) Hyperlipidemia Status: Chronic (5) Hypertension Status: Chronic Review of Systems Respiratory: No cough, No dyspnea at rest, No dyspnea on exertion, No hemoptysis, No shortness of breath, No sputum, No wheezing Cardiac: No PND, No chest pain, No edema, No orthopnea, No palpitations Physical Exam Vital Signs Last Vital Signs Documentation Date Time Temp Pulse Resp B/P Pulse Ox O2 Delivery O2 Flow Rate FiO2 04/04/17 15:33 36.9 62 22 132/71 99 Room Air Physical Exam Constitutional: General Apperance: well-nourished Level of Distress: NAD Ambulation: ambulating normally Head: normocephalic, atraumatic ENMT: normal ENT inspection Neck: supple, trachea midline Lungs: Auscultation: breath sounds normal, no wheezing, no rales/crackles, no rhonchi Cardiovascular: Heart Auscultation: RRR, normal S1, normal S2, no murmurs, no rubs, no gallops Peripheral Pulses: Radial Pulse: normal on the right Abdomen: Bowel Sounds: normal Inspection & Palpation: soft, non-distended, no tenderness, guarding & rebound Extremities: no cyanosis, no edema, no clubbing, no ulcers Neurologic: Gait & Station: pertinent finding (No focal motor deficit) Cranial Nerves: grossly intact Assessment and Plan Assessment and Plan FINAL IMPRESSION: 1. Hypertensive urgency - resolved - related to abdominal discomfort, urinary retention and constipation. 2. Abnormal ECG secondary to left ventricular hypertrophy - moderate LVH confirmed with echocardiogram 3. Atypical chest discomfort secondary to #1. - CE negative - no RWMA on echo 4. Dyslipidemia. 5. Active tobacco abuse. PLAN AND RECOMMENDATIONS: Continue current antihypertensive medications. Smoking cessation advised. No further cardiac testing at this time. Will sign off. Please call with questions. Laboratory Results Last 24 Hours Test 04/03/17 16:47 04/03/17 22:50 04/04/17 04:25 Troponin I 0.022 ng/ml 0.028 ng/ml 0.025 ng/ml White Blood Count 9.30 K/uL Red Blood Count 4.54 M/uL Hemoglobin 14.6 g/dL Hematocrit 43.1 % Mean Corpuscular Volume 94.9 fL Mean Corpuscular Hemoglobin 32.2 pg Mean Corpuscular Hemoglobin Concent 33.9 g/dl RDW Standard Deviation 47.1 fL RDW Coefficient of Variation 13.6 % Platelet Count 257 K/uL Mean Platelet Volume 9.5 fL Sodium Level 140 mmol/L Potassium Level 3.8 mmol/L Chloride Level 103 mmol/L Carbon Dioxide Level 30 mmol/L Anion Gap 7.0 mmol/L Blood Urea Nitrogen 22 mg/dl Creatinine 1.10 mg/dl Est Creatinine Clear Calc Drug Dose 64.3 ml/min Estimated GFR () 79.5 Estimated GFR (Non- 68.6 BUN/Creatinine Ratio 19.9 Random Glucose 99 mg/dl Calcium Level 9.1 mg/dl Triglycerides Level 111 mg/dl Cholesterol Level 188 mg/dl HDL Cholesterol 50 mg/dl LDL Cholesterol, Calculated 116 mg/dl VLDL Cholesterol, Calculated 22 mg/dl Cholesterol/HDL Ratio 3.8 Prostate Specific Antigen 4.160 ng/ml
--- NOTE | 2017-04-04 18:48 | Urology Consultation ---
History General Date of Service: April 04, 2017. Chief Complaint: urinary retention Primary Care Physician: Darius PEREIRA Pt seen a urologist before?: No History of Present Illness I am asked by Dr Mayes to evaluate and treat patient for urinary retention. he was admitted from [facility] with chest pain. he was found to be severely hypertensive and then in acute urinary retention. his bp normalized once a verduzco was placed and he drained 1400mL. He has been voiding with a struggle for months but once he developed constipation over the weekend voiding was painful and unsuccessful. He feels much better now. Laboratory Results Past 24 Hours Test 04/03/17 22:50 04/04/17 04:25 Range/Units Troponin I 0.028 0.025 0-0.045 ng/ml White Blood Count 9.30 4.8-10.8 K/uL Red Blood Count 4.54 4.7-6.1 M/uL Hemoglobin 14.6 14.0-18.0 g/dL Hematocrit 43.1 42-52 % Mean Corpuscular Volume 94.9 80-100 fL Mean Corpuscular Hemoglobin 32.2 25-34 pg Mean Corpuscular Hemoglobin Concent 33.9 32-36 g/dl RDW Standard Deviation 47.1 36.4-46.3 fL RDW Coefficient of Variation 13.6 11.5-14.5 % Platelet Count 257 130-400 K/uL Mean Platelet Volume 9.5 7.4-10.4 fL Sodium Level 140 136-145 mmol/L Potassium Level 3.8 3.5-5.1 mmol/L Chloride Level 103 98-107 mmol/L Carbon Dioxide Level 30 21-32 mmol/L Anion Gap 7.0 3-11 mmol/L Blood Urea Nitrogen 22 7-18 mg/dl Creatinine 1.10 0.60-1.40 mg/dl Est Creatinine Clear Calc Drug Dose 64.3 ml/min Estimated GFR () 79.5 Estimated GFR (Non- 68.6 BUN/Creatinine Ratio 19.9 10-20 Random Glucose 99 70-99 mg/dl Calcium Level 9.1 8.5-10.1 mg/dl Triglycerides Level 111 0-150 mg/dl Cholesterol Level 188 0-200 mg/dl HDL Cholesterol 50 mg/dl LDL Cholesterol, Calculated 116 mg/dl VLDL Cholesterol, Calculated 22 mg/dl Cholesterol/HDL Ratio 3.8 Prostate Specific Antigen 4.160 0.000-4.000 ng/ml Labs were reviewed and are within normal limits unless listed below. Labs are available in the chart and at [facility] Problem List Medical Problems: (1) Abnormal EKG Status: Acute (2) CAD (coronary artery disease) Status: Chronic (3) Chest pain Status: Acute (4) Hyperlipidemia Status: Chronic (5) Hypertension Status: Chronic Past History coronary artery disease, hypertension Past Surgical History: orthopedic surgery (right hand) Family History no prostate cancer that he knows Social History Hx Tobacco Use In Past Year?: Yes Smoking: less than 1 pack/day Alcohol: never Drug use: none Marital status: single (Inmate) Housing status: other (incarcerated) Occupation status: other (Inmate) Allergies Coded Allergies: No Known Allergies (Unverified , 04/03/17) Medications Home Medications: Home Meds and Scripts Medications Dose Route/Sig Max Daily Dose Days Date Category Dose Instructions Nitrostat (Nitroglycerin) 0.4 Mg Tab 0.4 Mg UT PRN 04/03/17 Reported 1 TAB SL Q5MIN FOR CHEST PAIN, MAY REPEAT UP TO 3 DOSES. IF NO RELIEF CALL MD NEEDED Lopressor (Metoprolol Tartrate) 25 Mg Tab 25 Mg PO BID 04/03/17 Reported Zestril (Lisinopril) 40 Mg Tab 40 Mg PO DAILY 04/03/17 Reported Isordil (Isosorbide Dinitrate) 30 Mg Tab 30 Mg PO QID 04/03/17 Reported Hctz (Hydrochlorothiazide) 25 Mg Tab 25 Mg PO DAILY 04/03/17 Reported Lipitor (Atorvastatin) 40 Mg Tab 40 Mg PO QPM 04/03/17 Reported TAKE IN ADDITION TO 20MG TO MAKE TOTAL DOSE OF 60MG Lipitor (Atorvastatin) 20 Mg Tab 20 Mg PO QPM 04/03/17 Reported TAKE IN ADDITION TO 40MG TAB TO MAKE TOTAL DOSE OF 60MG Aspirin Chewable (Aspirin) 81 Mg Chew 81 Mg PO DAILY 04/03/17 Reported Norvasc (Amlodipine Besylate) 10 Mg Tab 10 Mg PO DAILY 04/03/17 Reported Inpatient Medications: Current Inpatient Medications Medications (Trade) Dose Ordered Sig/Keith Route Start Time Stop Time Status Last Admin Dose Admin Amlodipine Besylate (Norvasc Tab) 10 mg DAILY PO 04/04/17 09:00 05/04/17 08:59 5/9/17 08:43 10 MG Aspirin (Ecotrin Tab) 81 mg DAILY PO 04/04/17 09:00 05/04/17 08:59 04/04/17 08:43 81 MG Atorvastatin Calcium (Lipitor Tab) 40 mg QPM PO 04/03/17 21:00 05/03/17 20:59 04/03/17 21:17 40 MG Hydrochlorothiazide (Hydrochlorothiazide Tab) 25 mg DAILY PO 04/04/17 09:00 05/04/17 08:59 04/04/17 08:43 25 MG Lisinopril (Zestril Tab) 40 mg DAILY PO 04/04/17 09:00 05/04/17 08:59 04/04/17 08:43 40 MG Nitroglycerin (Nitrostat Tab) 0.4 mg UD PRN UT 04/03/17 12:15 05/03/17 12:14 Isosorbide Dinitrate (Isordil Tab) 30 mg QID@0700,1000,1400,1700 PO 04/03/17 14:00 05/03/17 13:59 Future Hold Enoxaparin Sodium (Lovenox Inj) 40 mg Q24H SC 04/03/17 16:00 05/03/17 15:59 04/04/17 15:32 40 MG Acetaminophen (Tylenol Tab) 650 mg Q4H PRN PO 04/03/17 12:15 05/03/17 12:14 04/04/17 13:27 650 MG Magnesium Hydroxide (Milk Of Magnesia Susp) 30 ml Q12H PRN PO 04/03/17 12:15 05/03/17 12:14 04/04/17 15:34 30 ML Ondansetron HCl (Zofran Inj) 4 mg Q6H PRN IV 04/03/17 12:15 05/03/17 12:14 Polyethylene (Miralax Powder Packet) 17 gm DAILY PRN PO 04/03/17 12:15 05/03/17 12:14 04/04/17 08:43 17 GM Pantoprazole Sodium (Protonix Tab) 40 mg QAM PO 04/04/17 09:00 05/04/17 08:59 04/04/17 08:42 40 MG Tamsulosin HCl (Flomax Cap) 0.4 mg DAILY PO 04/03/17 13:00 05/03/17 12:59 04/04/17 08:43 0.4 MG Docusate Sodium (coLACE CAP) 100 mg BID PO 04/03/17 21:00 05/03/17 20:59 04/04/17 08:42 100 MG Bisacodyl (Dulcolax Tab) 5 mg BID PRN PO 04/03/17 13:30 05/03/17 13:29 04/04/17 15:34 5 MG Miscellaneous (Iv Fluids Completed) 1 ea PRN PRN N/A 04/03/17 14:15 04/03/18 14:14 Metoprolol Tartrate (Lopressor Tab) 50 mg BID PO 04/03/17 21:00 05/03/17 20:59 04/04/17 08:42 50 MG Metoprolol Tartrate (Lopressor Iv) 5 mg Q6 PRN IV 04/03/17 17:45 05/03/17 17:44 Review of Systems Review of Systems Constitutional: + chills, + weight loss (has lost 10 pounds unintentionally ), No fever Neurological: + dizzy, No seizures Endocrine: No excessive thirst, No tired/sluggish, No too cold, No too hot Gastrointestinal: + abdominal pain, + constipation, + nausea Cardiovascular: + angina, + chest pain, No palpitations Respiratory: + chronic cough, + shortness of breath Musculoskeletal: No arthritis, No back pain, No joint pain, No neck pain Male : + frequent urination, + nocturia more than once/night, + painful urination, + urinary retention Physical Exam Vital Signs: Vital Signs Past 12 Hours Date Time Temp Pulse Resp B/P Pulse Ox O2 Delivery O2 Flow Rate FiO2 04/04/17 16:00 Room Air 04/04/17 15:33 36.9 62 22 132/71 99 Room Air 04/04/17 14:00 Room Air 04/04/17 13:21 58 118/69 04/04/17 12:02 36.8 81 18 161/64 95 04/04/17 09:47 77 137/70 04/04/17 08:00 99 Room Air 04/04/17 08:00 36.7 72 18 139/76 99 Physical Exam: General Appearance: WD/WN, no apparent distress, + thin Eyes: bilateral eyes normal inspection ENT: hearing grossly normal Neck: supple, no adenopathy, no JVD, trachea midline Gastrointestinal: Abdomen: RUQ tenderness, LUQ tenderness, guarding, pertinent finding (no peritoneal signs just tender) Bladder: normal bladder Renal: normal renal Hernia: absent hernia Liver: normal liver Genitourinary - Male: Penis: normal penis, circumcised Urethral Meatus: normal urethral meatus Anus / Perineum: normal anus/perineum Sphincter Tone: normal sphincter tone Prostate: normal prostate, size (40 g smooth) Extremities: non-tender, normal inspection, no pedal edema, no calf tenderness Neurologic/Psychiatric: alert, normal mood/affect, oriented x 3 Skin: normal color, warm/dry, no rash Lymphatic: no adenopathy Assessment & Plan Assessment & Plan acute urinary retention seems he had moderate bseline bph type symptoms then the constipation tipped him into retention with the large volume drained (1400mL) he has suffered a stretch injury and I suggest the verduzco stay in one week I suggest he take tamsulosin 0.4mg daily and finasteride 5mg daily. I suggest a baseline psa test in a few weeks once the trauma of the catheterization has healed. If it is checked too close to a catheterization it can be artificially high.
[2017-04-04] MEDS: ATORVASTATIN 40 MG TAB PO SCH (21:19)
[2017-04-05 03:49] VITALS: BP 132/69; PULSE 67; TEMP 37; O2SAT 100
[2017-04-05 08:00] VITALS: O2SAT 99
[2017-04-05 08:34] VITALS: BP 142/63; PULSE 83; TEMP 36.8; O2SAT 96
[2017-04-05] MEDS: ASPIRIN 81 MG ECTAB PO SCH (08:36)
[2017-04-05] MEDS: DOCUSATE SODIUM 100 MG CAP PO SCH (08:36)
[2017-04-05] MEDS: METOPROLOL TARTRATE 25 MG TAB PO SCH (08:37)
[2017-04-05] MEDS: LISINOPRIL 40 MG TAB PO SCH (08:37)
[2017-04-05] MEDS: PANTOprazole SOD 40 MG TAB PO SCH (08:37)
[2017-04-05] MEDS: HYDROCHLOROTHIAZIDE 25 MG TAB PO SCH (08:37)
[2017-04-05] MEDS: POLYETHYLENE (MIRALAX) 17 GM PACK PO PRN (08:38)
[2017-04-05] MEDS: AMLODIPINE BESYLATE 5 MG TAB PO SCH (08:38)
[2017-04-05] MEDS ORDERED: FINASTERIDE 5 MG TAB PO SCH (09:00)
[2017-04-05] MEDS ORDERED: SENNA 8.8 MG/5 ML UDP PO ONE (11:15)
--- NOTE | 2017-04-05 11:20 | Progress Note ---
Subjective Date of Service: April 05, 2017. Subjective Pt evaluation today including: conversation w/ patient, physical exam, lab review, review of studies, review of inpatient medication list Saw/examined the patient in room 222 No problems/issues to note today; denies chest pain/shortness of breath/ palpitations Pedersen catheter remains in place, draining appropriately c/o constipation today Problem List Medical Problems: (1) Abnormal EKG Status: Acute (2) CAD (coronary artery disease) Status: Chronic (3) Chest pain Status: Acute (4) Hyperlipidemia Status: Chronic (5) Hypertension Status: Chronic Review of Systems Constitutional: No chills, No fever, No weakness Respiratory: No cough, No shortness of breath, No sputum Cardiac: No chest pain, No edema, No palpitations Abdomen: + constipation, No diarrhea, No nausea, No pain, No vomiting Heme: No abnormal bleeding/bruising Medications Current Inpatient Medications Medications (Trade) Dose Ordered Sig/Keith Route Start Time Stop Time Status Last Admin Dose Admin Amlodipine Besylate (Norvasc Tab) 10 mg DAILY PO 04/04/17 09:00 05/04/17 08:59 04/05/17 08:38 10 MG Aspirin (Ecotrin Tab) 81 mg DAILY PO 04/04/17 09:00 05/04/17 08:59 04/05/17 08:36 81 MG Atorvastatin Calcium (Lipitor Tab) 40 mg QPM PO 04/03/17 21:00 05/03/17 20:59 04/04/17 21:19 40 MG Hydrochlorothiazide (Hydrochlorothiazide Tab) 25 mg DAILY PO 04/04/17 09:00 05/04/17 08:59 04/05/17 08:37 25 MG Lisinopril (Zestril Tab) 40 mg DAILY PO 04/04/17 09:00 05/04/17 08:59 04/05/17 08:37 40 MG Nitroglycerin (Nitrostat Tab) 0.4 mg UD PRN UT 04/03/17 12:15 05/03/17 12:14 Isosorbide Dinitrate (Isordil Tab) 30 mg QID@0700,1000,1400,1700 PO 04/03/17 14:00 05/03/17 13:59 Future Hold Enoxaparin Sodium (Lovenox Inj) 40 mg Q24H SC 04/03/17 16:00 05/03/17 15:59 04/04/17 15:32 40 MG Acetaminophen (Tylenol Tab) 650 mg Q4H PRN PO 04/03/17 12:15 05/03/17 12:14 04/04/17 13:27 650 MG Magnesium Hydroxide (Milk Of Magnesia Susp) 30 ml Q12H PRN PO 04/03/17 12:15 05/03/17 12:14 04/04/17 15:34 30 ML Ondansetron HCl (Zofran Inj) 4 mg Q6H PRN IV 04/03/17 12:15 05/03/17 12:14 Polyethylene (Miralax Powder Packet) 17 gm DAILY PRN PO 04/03/17 12:15 05/03/17 12:14 04/05/17 08:38 17 GM Pantoprazole Sodium (Protonix Tab) 40 mg QAM PO 04/04/17 09:00 05/04/17 08:59 04/05/17 08:37 40 MG Docusate Sodium (coLACE CAP) 100 mg BID PO 04/03/17 21:00 05/03/17 20:59 04/05/17 08:36 100 MG Bisacodyl (Dulcolax Tab) 5 mg BID PRN PO 04/03/17 13:30 05/03/17 13:29 04/04/17 15:34 5 MG Miscellaneous (Iv Fluids Completed) 1 ea PRN PRN N/A 04/03/17 14:15 04/03/18 14:14 Metoprolol Tartrate (Lopressor Tab) 50 mg BID PO 04/03/17 21:00 05/03/17 20:59 04/05/17 08:37 50 MG Metoprolol Tartrate (Lopressor Iv) 5 mg Q6 PRN IV 04/03/17 17:45 05/03/17 17:44 Finasteride (Proscar Tab) 5 mg QAM PO 04/05/17 09:00 05/05/17 08:59 04/05/17 08:37 5 MG Tamsulosin HCl (Flomax Cap) 0.4 mg HS PO 04/05/17 21:00 05/05/17 20:59 Objective Vital Signs Date Time Temp Pulse Resp B/P Pulse Ox O2 Delivery O2 Flow Rate FiO2 04/05/17 08:34 36.8 83 18 142/63 96 04/05/17 04:00 Room Air 04/05/17 03:49 37.0 67 17 132/69 100 Room Air 04/04/17 23:42 36.7 63 16 127/72 97 Room Air 04/04/17 23:35 Room Air 04/04/17 20:00 99 Room Air 04/04/17 19:39 37.0 71 20 147/75 99 Room Air 04/04/17 16:00 Room Air 04/04/17 15:33 36.9 62 22 132/71 99 Room Air 04/04/17 14:00 Room Air 04/04/17 13:21 58 118/69 04/04/17 12:02 36.8 81 18 161/64 95 Physical Exam General Appearance: + thin Respiratory/Chest: chest non-tender, lungs clear, normal breath sounds, no respiratory distress, no accessory muscle use Cardiovascular: regular rate, rhythm, no edema, no murmur Abdomen: normal bowel sounds, non tender, soft Extremities: normal inspection, no pedal edema Neurologic/Psychiatric: no motor/sensory deficits, alert, normal mood/affect Skin: normal color Assessment and Plan This is a 67 year old male with a PMH of CAD, HTN, HLD, hx. of CVA presented with chest pain and epigastric pain and found to have hypertensive urgency and urinary retention Hypertensive Urgency - resolved patient presented with hypertensive urgency acute urinary retention making things worse echo - shows LVH continue HCTZ 25mg daily, Lisinopril 40mg, Metoprolol 50mg BID, Amlodipine 10mg Isosorbide held due to nitro patch use, which was discontinued on 04/04 can restart Isosorbide on discharge Acute Urinary Retention possibly related to BPH will continue Flomax keep Pedersen in for at least one week discontinue Pedersen in around one week then obtain PSA in 2 weeks after Pedersen is removed Chest Pain - resolved patient presented with L sided chest pain hx. of CAD; cardiac enzymes negative x 3 possibly related to hypertensive urgency continue current medications, aspirin, statin, b-lindsay Epigastric Pain and Constipation patient presented with epigastric pain, possibly reflux now states he has not had a bowel movement since arriving trying prune juice, Colace, Dulcolax will add senna syrup continue Protonix for possible GERD Hx. of CVA no residual symptoms, continue aspirin + statin DVT ppx Lovenox FULL CODE d/c today (04/05)
[2017-04-05 11:55] VITALS: BP 133/63; PULSE 92; TEMP 36.5; O2SAT 95
[2017-04-05] MEDS ORDERED: CLC100 PO (12:40)
[2017-04-05] MEDS ORDERED: METO50TA16 PO (12:40)
[2017-04-05] MEDS ORDERED: FLM4 PO (12:40)
[2017-04-05] MEDS ORDERED: MRLP17X PO (12:40)
[2017-04-05] MEDS ORDERED: PRS5 PO (12:40)
[2017-04-05] MEDS ORDERED: PRT40 PO (12:40)
[2017-04-05] MEDS ORDERED: DLC5 PO (12:40)
--- NOTE | 2017-04-05 12:49 | Discharge Instructions ---
Discharge Instructions Date of Service April 05, 2017. Admission Reason for Admission: Hypertensive Urgency Discharge Discharge Diagnosis / Problem: Hypertensive Urgency, Acute Urinary Retention and BPH Discharge Goals Goal(s): Decrease discomfort, Improve function, Diagnostic testing, Therapeutic intervention Activity Recommendations Activity Limitations: resume your previous activity . Instructions / Follow-Up Instructions / Follow-Up Please follow-up with your primary care physician * You will be discharged with the Pedersen catheter for around one week * Continue Flomax and Finasteride * PSA level (blood work) should be followed up about 2 weeks after Pedersen is removed * Your dose of anti-hypertension medications has been adjusted, continue as prescribed Current Hospital Diet Patient's current hospital diet: AHA Diet (Heart Healthy), Low Sodium Diet (2gm Na) Discharge Diet Recommended Diet: AHA Diet (Heart Healthy), Low Sodium Diet (2gm Na) Pending Studies Studies pending at discharge: no Laboratory Results Lipid Panel Test 04/04/17 04:25 Range/Units Triglycerides Level 111 0-150 mg/dl Cholesterol Level 188 0-200 mg/dl HDL Cholesterol 50 mg/dl Cholesterol/HDL Ratio 3.8 LDL Cholesterol, Calculated 116 mg/dl Medical Emergencies . Who to Call and When: Medical Emergencies: If at any time you feel your situation is an emergency, please call 911 immediately. . Non-Emergent Contact Non-Emergency issues call your: Primary Care Provider . . "Provider Documentation" section prepared by Kimmy Dominguez. . VTE Core Measure Inpt VTE Proph given/why not?: Enoxaparin (Lovenox)SQ
--- NOTE | 2017-04-05 12:57 | Discharge Summary ---
Discharge Summary Date of Service April 05, 2017. Discharge Summary Admission Date: April 03, 2017 at 12:10 Discharge Date: April 05, 2017 Discharge Disposition: Home ([facility]) Principal Diagnosis: Hypertensive Urgency Chest Pain Acute Urinary Retention BPH Medication Reconciliation New Medications: Bisacodyl (Bisacodyl EC) 5 Mg Tabec 5 MG PO BID PRN for Constipation for 30 Days, #60 TABS Docusate Sodium (Docusate Sodium) 100 Mg Cap 100 MG PO BID for 30 Days, #60 CAP Finasteride (Finasteride) 5 Mg Tab 5 MG PO QAM for 30 Days, #30 TAB Pantoprazole (Pantoprazole Sodium) 40 Mg Tab 40 MG PO QAM for 30 Days, #30 TAB Polyethylene (Miralax) 17 Gm Pow 17 GM PO DAILY PRN for Constipation for 30 Days, #30 PKT Tamsulosin HCl (Tamsulosin HCl) 0.4 Mg Cap 0.4 MG PO HS for 30 Days, #30 CAP Changed Medications: Metoprolol Tartrate (Lopressor) (Lopressor) 50 Mg Tab 1 TAB PO BID for 30 Days, #60 TAB 5 Refills (Changed from: Metoprolol Tartrate ( Lopressor) (Lopressor) 25 Mg Tab 25 Mg PO BID) Continued Medications: Amlodipine (Norvasc) 10 Mg Tab 10 MG PO DAILY, TAB Aspirin (Aspirin Chewable) 81 Mg Chew 81 MG PO DAILY Atorvastatin (Lipitor) 20 Mg Tab 20 MG PO QPM, TAB TAKE IN ADDITION TO 40MG TAB TO MAKE TOTAL DOSE OF 60MG Atorvastatin (Lipitor) 40 Mg Tab 40 MG PO QPM, TAB TAKE IN ADDITION TO 20MG TO MAKE TOTAL DOSE OF 60MG Hydrochlorothiazide (Hctz) 25 Mg Tab 25 MG PO DAILY, TAB Isosorbide Dinitrate (Isordil) 30 Mg Tab 30 MG PO QID, TAB Lisinopril (Zestril) 40 Mg Tab 40 MG PO DAILY, TAB Nitroglycerin (Nitrostat) 0.4 Mg Tab 0.4 MG UT PRN, BTL 1 TAB SL Q5MIN FOR CHEST PAIN, MAY REPEAT UP TO 3 DOSES. IF NO RELIEF CALL MD NEEDED Admission Information HPI (per Admitting provider): The patient is a 66 year old male with PMH of HTN, Dyslipidemia, Stroke with no deficits, hx of cardiac cath at [facility] in 2007 - no stents were placed (patient doesnt know about the results) who presents to the Emergency Room from [facility], with complaints of constant left sided chest and epigastric abdominal pain that began one night prior to arrival. Patient has been in [facility] x 43 years, recently transferred to [facility]. No prior records available in EMR. Patient comes in with c/o left sided chest pain/Epigastric pain which began yesterday night and per him it is constant, dull aching, non radiating, no aggravating or relieving factors. Does have mild SOB associated with it. Not associated with nausea, diaphoresis, sweating, palpitations, fever, chills, cough, leg swelling. No headaches, blurry vision, localized weakness, numbness/tingling, vomiting. Did take him medications in AM In ED, BP is 264/151 on presentation, Pulse 110, now down to 70s -received Lopressor IV -15 mg x 1 dose. Received Aspirin 160 mg, NTG x 2 doses (one by EMS , one in ED). Continues to have chest pain. Has painful mictuirition and difficulty passing urine. Has always had urgency, hesitancy, frequency, but never been this painful before. C/o constipation- No BM x 3 days. Will admit him for HTN urgency/Chest pain rule out ACS. Physical Exam (per Admitting): General Appearance: + moderate distress (secondary to dysuria) Head: normocephalic, atraumatic Eyes: PERRL ENT: hearing grossly normal Neck: supple, no JVD Respiratory/Chest: chest non-tender, lungs clear, normal breath sounds, no respiratory distress, no accessory muscle use Cardiovascular: regular rate, rhythm, no edema, no JVD Abdomen/GI: normal bowel sounds, non tender, soft Back: no CVA tenderness Extremities/Musculoskelatal: no calf tenderness, no pedal edema Neurologic/Psych: outside repairer special II-XII nml as tested, no motor/sensory deficits, alert , oriented x 3 Skin: no rash Hospital Course This is a 67 year old male with a PMH of CAD, HTN, HLD, hx. of CVA presented with chest pain and epigastric pain and found to have hypertensive urgency and urinary retention Hypertensive Urgency - resolved patient presented with hypertensive urgency acute urinary retention making things worse echo - shows LVH continue HCTZ 25mg daily, Lisinopril 40mg, Metoprolol 50mg BID, Amlodipine 10mg Isosorbide held due to nitro patch use, which was discontinued on 04/04 can restart Isosorbide on discharge Acute Urinary Retention possibly related to BPH will continue Flomax keep Pedersen in for at least one week discontinue Pedersen in around one week then obtain PSA in 2 weeks after Pedersen is removed Chest Pain - resolved patient presented with L sided chest pain hx. of CAD; cardiac enzymes negative x 3 possibly related to hypertensive urgency continue current medications, aspirin, statin, b-lindsay Epigastric Pain and Constipation patient presented with epigastric pain, possibly reflux now states he has not had a bowel movement since arriving trying prune juice, Colace, Dulcolax will add senna syrup continue Protonix for possible GERD Hx. of CVA no residual symptoms, continue aspirin + statin DVT ppx Lovenox FULL CODE d/c today (04/05) Total time spent on discharge = 40 minutes This includes examination of the patient, discharge planning, medication reconciliation, and communication with other providers. Discharge Instructions Please follow-up with your primary care physician * You will be discharged with the Pedersen catheter for around one week * Continue Flomax and Finasteride * PSA level (blood work) should be followed up about 2 weeks after Pedersen is removed * Your dose of anti-hypertension medications has been adjusted, continue as prescribed
[2017-04-05 13:51] VITALS: BP 133/63; PULSE 92; TEMP 36.5; O2SAT 95
[2017-04-05] MEDS ORDERED: TAMSULOSIN HCL 0.4 MG CAP PO SCH (21:00)
== END 2017-04-05 15:22 | disposition home or self-care (01) ==
LOC: ENRESERVTM → ENRESERVDT → EDBD 10:27 → C.EDA 10:31 → C.2T 12:10 → EDBEDREQ 12:30
PROVIDERS: ADMIT Internal Medicine; ATTEND Internal Medicine
DX: I16.0 Hypertensive urgency (principal); R94.31 Abnormal electrocardiogram [ECG] [EKG]; R10.13 Epigastric pain; K59.00 Constipation, unspecified; N40.1 Benign prostatic hyperplasia with lower urinary tract symptoms; R33.9 Retention of urine, unspecified; I25.10 Atherosclerotic heart disease of native coronary artery without angina pectoris; F17.200 Nicotine dependence, unspecified, uncomplicated; I10 Essential (primary) hypertension; E78.5 Hyperlipidemia, unspecified; Z79.82 Long term (current) use of aspirin; Z86.73 Personal history of transient ischemic attack (TIA), and cerebral infarction without residual deficits